=== PATIENT | female | born 2000 | race Caucasian/White ===

== ENCOUNTER → 2019-10-23 22:10 | Observation (INO) ==
[2019-10-23 20:06] LABS: Bilirubin,Urine Negative (Negative); Blood,Urine Negative (Negative); Clarity,Urine Cloudy (Clear); Color,Urine Yellow (Yellow); Glucose,Urine (UA) Normal (Normal); Ketones,Urine Negative (Negative); Leukocyte Esterase,Urine Negative (Negative); Nitrite,Urine Negative (Negative); Protein,Urine Negative (Neg-Trace); Urobilinogen,Urine Normal (Normal)
[2019-10-23 20:16] LABS: Amphetamine Screen,Urine Negative ng/mL (Cutoff=1000); Barbiturate Screen,Urine Negative ng/mL (Cutoff=200); Benzodiazepines Screen,Urine Negative ng/mL (Cutoff=200); Cannabinoid Screen,Urine Negative ng/mL (Cutoff = 50); Cocaine Screen,Urine Negative ng/mL (Cutoff= 300); Opiate Screen,Urine Negative ng/mL (Cutoff=300); Phencyclidine Screen,Urine Negative ng/mL (Cutoff=25)
[2019-10-23 20:30] LABS: Bacteria,Urine None Seen per hpf (None-Few); Hyaline Casts,Urine None Seen per lpf (None-Few); RBC,Urine 0-3 per hpf (0-3); Squamous Epithelial Cell,Urine Many per lpf (None-Few); WBC,Urine 0-3 per hpf (0-3)
[~2019-10-23 22:10] MED LIST: Acetaminophen 325 MG TABLET PO ONE; Terbutaline 1 MG/ML VIAL SQ ONE
== END | disposition home or self-care (01) ==
LOC: 1NENULAB
PROVIDERS: ADMIT Advanced Practice Midwife; ATTEND Advanced Practice Midwife

== ENCOUNTER 2019-11-06 22:31 | Observation (INO) ==
[2019-11-06 22:42] LABS: Bilirubin,Urine Small (Negative); Blood,Urine Negative (Negative); Clarity,Urine Clear (Clear); Color,Urine Dark Yellow (Yellow); Glucose,Urine (UA) Normal (Normal); Ketones,Urine 15 mg/dL (Negative); Leukocyte Esterase,Urine Negative (Negative); Nitrite,Urine Negative (Negative); Protein,Urine Negative (Neg-Trace); Specific Gravity,Urine > 1.030 (1.010-1.025); Urobilinogen,Urine Normal (Normal)
[2019-11-07 01:04] LABS: Candida DNA Not Detected (Not Detect); Gardnerella DNA Not Detected (Not Detect); Trichomonas DNA Not Detected (Not Detect)
== END 2019-11-07 00:15 | disposition home or self-care (01) ==
LOC: 1NENUNUR → 1NENULAB 22:31
PROVIDERS: ADMIT Obstetrics & Gynecology; ATTEND Obstetrics & Gynecology

== ENCOUNTER 2019-11-11 00:16 | Observation (INO) ==
[2019-11-11 00:35] LABS: Bilirubin,Urine Negative (Negative); Blood,Urine Negative (Negative); Clarity,Urine Cloudy (Clear); Color,Urine Yellow (Yellow); Glucose,Urine (UA) Normal (Normal); Ketones,Urine Negative (Negative); Leukocyte Esterase,Urine Trace (Negative); Nitrite,Urine Negative (Negative); PH,Urine 6.5 pH Units (5.0-8.0); Protein,Urine Negative (Neg-Trace); Specific Gravity,Urine 1.016 (1.010-1.025); Urobilinogen,Urine Normal (Normal)
[2019-11-11 00:36] LABS: Bacteria,Urine Few per hpf (None-Few); Hyaline Casts,Urine None Seen per lpf (None-Few); RBC,Urine 0-3 per hpf (0-3); Squamous Epithelial Cell,Urine Many per lpf (None-Few)
[2019-11-11 00:48] LABS: Amphetamine Screen,Urine Negative ng/mL (Cutoff=1000); Barbiturate Screen,Urine Negative ng/mL (Cutoff=200); Benzodiazepines Screen,Urine Negative ng/mL (Cutoff=200); Cannabinoid Screen,Urine Negative ng/mL (Cutoff = 50); Cocaine Screen,Urine Negative ng/mL (Cutoff= 300); Opiate Screen,Urine Negative ng/mL (Cutoff=300); Phencyclidine Screen,Urine Negative ng/mL (Cutoff=25)
== END 2019-11-11 01:15 | disposition home or self-care (01) ==
LOC: 1NENULAB
PROVIDERS: ADMIT Advanced Practice Midwife; ATTEND Advanced Practice Midwife

== ENCOUNTER → 2019-11-19 18:40 | Observation (INO) ==
[2019-11-19 17:49] LABS: Bilirubin,Urine Negative (Negative); Blood,Urine Negative (Negative); Clarity,Urine Cloudy (Clear); Color,Urine Dark Yellow (Yellow); Glucose,Urine (UA) Normal (Normal); Ketones,Urine Trace mg/dL (Negative); Leukocyte Esterase,Urine Moderate (Negative); Nitrite,Urine Negative (Negative); PH,Urine 6.5 pH Units (5.0-8.0); Protein,Urine Negative (Neg-Trace); Specific Gravity,Urine 1.024 (1.010-1.025); Urobilinogen,Urine Normal (Normal)
[2019-11-19 17:52] LABS: Squamous Epithelial Cell,Urine Many per lpf (None-Few); WBC,Urine 15-30 per hpf (0-3)
[2019-11-19 18:02] LABS: RBC,Urine 0-3 per hpf (0-3)
[2019-11-19 18:03] LABS: Bacteria,Urine Few per hpf (None-Few)
== END | disposition home or self-care (01) ==
LOC: 1NENULAB
PROVIDERS: ADMIT Student in an Organized Health Care Education/Training Program; ATTEND Student in an Organized Health Care Education/Training Program

== ENCOUNTER 2019-11-29 05:49 | Inpatient (IN) ==
[2019-11-29] MEDS ORDERED: CeFAZolin Syr 3,000MG/30 ML 3,000 MG/30 ML SYRINGE IVPB ONE (06:05)
[2019-11-29] MEDS ORDERED: Ringers Solution, Lactated 1,000 ML IVC ONE (06:05)
[2019-11-29] MEDS ORDERED: Famotidine 20 MG/2 ML VIAL IVP ONE (06:05)
[2019-11-29] MEDS ORDERED: Metoclopramide 10 MG/2 ML VIAL IVP ONE (06:05)
[2019-11-29 06:39] LABS: Basophils % 0.3 %; Eosinophils # 0.1 K/mcL (0.0-0.6); Eosinophils % 0.8 %; Hematocrit 37.7 % (35.3-44.9); Immature Granulocytes % 0.6 % (0-4); Lymphocytes # 3.1 K/mcL (0.6-4.6); Lymphocytes % 24.8 %; Mean Corpuscular HGB Conc 31.8 g/dL (31.6-35.5); Mean Corpuscular Volume 84.9 fL (83.0-100.0); Mean Platelet Volume 11.1 fL (9.4-12.4); Monocytes # 0.9 K/mcL (0.0-1.3); Monocytes % 6.7 %; Neutrophils # 8.5 K/mcL (1.6-8.9); Platelet Count 236 K/mcL (140-400); Red Blood Count 4.44 M/mcL (3.82-4.97); Red Cell Distribution Width 14.9 % (11.5-14.5); Segmented Neutrophils % 66.8 %; White Blood Count 12.7 K/mcL (4.3-11.1)
[2019-11-29 06:42] LABS: Amphetamine Screen,Urine Negative ng/mL (Cutoff=1000); Barbiturate Screen,Urine Negative ng/mL (Cutoff=200)
[2019-11-29 06:43] LABS: Benzodiazepines Screen,Urine Negative ng/mL (Cutoff=300); Cannabinoid Screen,Urine Negative ng/mL (Cutoff = 50); Cocaine Screen,Urine Negative ng/mL (Cutoff= 300); Opiate Screen,Urine Negative ng/mL (Cutoff=300); Phencyclidine Screen,Urine Negative ng/mL (Cutoff=25)
[2019-11-29] MEDS ORDERED: Ringers Solution, Lactated 1,000 ML ONE ×2 (07:24→08:13)
[2019-11-29] MEDS ORDERED: *HR* Oxytocin 10 UNIT/ML VIAL IM ONE (08:30)
[2019-11-29] MEDS ORDERED: *HR* Morphine Sulfate/PF 10 MG/10 ML AMPUL ONE (08:30)
[2019-11-29] MEDS ORDERED: EPHEDrine 50 MG/ML VIAL ONE (08:44)
[2019-11-29] MEDS ORDERED: Acetaminophen IV 1,000 MG/100 ML INFUS..BTL IVPB ONE (09:54)
[2019-11-29] MEDS ORDERED: *HR* HYDROmorphone PF 0.5 MG/0.5 ML SYRINGE IVP PRN (09:54)
[2019-11-29] MEDS ORDERED: Ondansetron 4 MG/2 ML VIAL IVP ONE (09:54)
[2019-11-29] MEDS ORDERED: *HR* OxyCODONE Immed Rel 5 MG TABLET PO PRN (09:54)
[2019-11-29] MEDS ORDERED: *HR* Promethazine 25 MG/ML VIAL IVP PRN (09:54)
[2019-11-29] MEDS ORDERED: Ringers Solution, Lactated 1,000 ML IVC SCH (12:36)
[2019-11-29] MEDS ORDERED: Oxytocin 20 units/ LR 1000 mL 20 UNIT/1,000 ML BAG IVC SCH (12:36)
[2019-11-29] MEDS ORDERED: Ondansetron 4 MG/2 ML VIAL IVP PRN (12:36)
[2019-11-29] MEDS ORDERED: Naloxone 0.4 MG/ML INJ IVP PRN (12:36)
[2019-11-29] MEDS ORDERED: Sennosides 8.6 MG TABLET PO PRN (12:36)
[2019-11-29] MEDS ORDERED: Lidocaine/EPI 1:100k 1% 30 ML VIAL INFILT ONE (12:36)
[2019-11-29] MEDS ORDERED: Metoclopramide 10 MG/2 ML VIAL IVP PRN (12:36)
[2019-11-29] MEDS ORDERED: Simethicone 80 MG TAB.CHEW PO PRN (12:36)
[2019-11-29] MEDS: Nicotine 14 MG PATCH.TD24 TD SCH (14:00)
[2019-11-29] MEDS: metroNIDAZOLE 500 MG TABLET PO SCH (18:13)
[2019-11-29] MEDS: cephALEXin 500 MG CAPSULE PO SCH (18:14)
[2019-11-30] MEDS: cephALEXin 500 MG CAPSULE PO SCH ×4 (00:25→21:04)
[2019-11-30] MEDS: metroNIDAZOLE 500 MG TABLET PO SCH ×4 (00:25→21:04)
[2019-11-30 07:35] LABS: Basophils % 0.2 %; Eosinophils # 0.1 K/mcL (0.0-0.6); Eosinophils % 0.5 %; Hematocrit 33.9 % (35.3-44.9); Hemoglobin 10.8 g/dL (11.5-15.4); Immature Granulocytes % 0.6 % (0-4); Lymphocytes # 3.3 K/mcL (0.6-4.6); Lymphocytes % 24.1 %; Mean Corpuscular HGB Conc 31.9 g/dL (31.6-35.5); Mean Corpuscular Hemoglobin 26.7 pg (28.0-33.3); Mean Corpuscular Volume 83.9 fL (83.0-100.0); Mean Platelet Volume 11.6 fL (9.4-12.4); Monocytes # 1.1 K/mcL (0.0-1.3); Neutrophils # 9.1 K/mcL (1.6-8.9); Platelet Count 216 K/mcL (140-400); Red Blood Count 4.04 M/mcL (3.82-4.97); Red Cell Distribution Width 14.8 % (11.5-14.5); Segmented Neutrophils % 66.6 %; White Blood Count 13.6 K/mcL (4.3-11.1)
[2019-11-30] MEDS: Prenatal Vit/FA 1 EACH TABLET PO SCH (07:46)
[2019-11-30] MEDS: Ibuprofen 600 MG TABLET PO PRN ×2 (07:46→16:45)
[2019-11-30] MEDS: Nicotine 14 MG PATCH.TD24 TD SCH (08:12)
[2019-11-30] MEDS: *HR* OxyCODONE/APAP 5/325 TABLET PO PRN (18:42)
[2019-12-01] MEDS: *HR* OxyCODONE/APAP 5/325 TABLET PO PRN ×2 (01:49→08:25)
[2019-12-01 07:42] VITALS: BP 120/69
[2019-12-01] MEDS: Ibuprofen 600 MG TABLET PO PRN (08:24)
[2019-12-01] MEDS: cephALEXin 500 MG CAPSULE PO SCH (08:25)
[2019-12-01] MEDS: metroNIDAZOLE 500 MG TABLET PO SCH (08:25)
[2019-12-01] MEDS: Prenatal Vit/FA 1 EACH TABLET PO SCH (08:25)
== END 2019-12-01 12:07 | disposition home or self-care (01) | DRG 540 ==
LOC: 1NENULAB 05:49 → 1NENUOBS 12:15
PROVIDERS: ADMIT Obstetrics & Gynecology; ATTEND Obstetrics & Gynecology

== ENCOUNTER 2021-12-08 09:13 | Inpatient (IN) ==
[2021-12-08] MEDS ORDERED: Oxytocin 20 units/ LR 1000 mL 20 UNIT/1,000 ML BAG IVC ONE ×2 (09:57→15:19)
[2021-12-08] MEDS ORDERED: Famotidine 20 MG/2 ML VIAL IVP ONE (09:57)
[2021-12-08] MEDS ORDERED: Metoclopramide 10 MG/2 ML VIAL IVP ONE (09:57)
[2021-12-08 10:56] LABS: Amphetamine Screen,Urine Negative ng/mL (Cutoff=1000); Barbiturate Screen,Urine Negative ng/mL (Cutoff=200); Benzodiazepines Screen,Urine Negative ng/mL (Cutoff=200); Cannabinoid Screen,Urine Negative ng/mL (Cutoff = 50); Cocaine Screen,Urine Negative ng/mL (Cutoff= 300); Opiate Screen,Urine Negative ng/mL (Cutoff=300); Phencyclidine Screen,Urine Negative ng/mL (Cutoff=25)
[2021-12-08 11:00] LABS: Basophils % 0.3 %; Eosinophils # 0.1 K/mcL (0.0-0.6); Eosinophils % 0.7 %; Hematocrit 36.7 % (35.3-44.9); Hemoglobin 11.6 g/dL (11.5-15.4); Immature Granulocytes % 0.5 % (0-4); Lymphocytes % 19.6 %; Mean Corpuscular HGB Conc 31.6 g/dL (31.6-35.5); Mean Corpuscular Hemoglobin 26.4 pg (28.0-33.3); Mean Corpuscular Volume 83.6 fL (83.0-100.0); Mean Platelet Volume 10.8 fL (9.4-12.4); Monocytes # 0.6 K/mcL (0.0-1.3); Monocytes % 5.3 %; Neutrophils # 7.7 K/mcL (1.6-8.9); Platelet Count 231 K/mcL (140-400); Red Blood Count 4.39 M/mcL (3.82-4.97); Segmented Neutrophils % 73.6 %; White Blood Count 10.4 K/mcL (4.3-11.1)
[2021-12-08] MEDS ORDERED: Gentamicin 490 MG in 0.9 % Sodium Chloride 100 ML IVPB ONE (11:00)
[2021-12-08] MEDS: Ringers Solution, Lactated 1,000 ML IVC ONE ×2 (11:00→12:16)
[2021-12-08 11:27] LABS: Influenza A PCR Negative (Negative); Influenza B PCR Negative (Negative); Resp. Syncytial Virus PCR Negative (Negative)
[2021-12-08 11:43] LABS: SARS-CoV-2 by PCR (In House) Negative (Negative)
[2021-12-08] MEDS ORDERED: *HR* Morphine Sulfate/PF 10 MG/10 ML AMPUL ONE (13:19)
[2021-12-08] MEDS ORDERED: *HR* FentaNYL (PF) 100 MCG/2 ML VIAL ONE (13:19)
[2021-12-08] MEDS ORDERED: EPHEDrine 50 MG/ML VIAL ONE (13:34)
[2021-12-08] MEDS ORDERED: Acetaminophen IV 1,000 MG/100 ML BAG IVPB ONE (13:40)
[2021-12-08] MEDS ORDERED: Ondansetron 4 MG/2 ML VIAL ONE (13:58)
[2021-12-08] MEDS ORDERED: Ketorolac 30 MG/ML VIAL ONE (13:59)
[2021-12-08] MEDS ORDERED: Ringers Solution, Lactated 1,000 ML ONE (15:54)
[2021-12-08] MEDS ORDERED: Ondansetron 4 MG/2 ML VIAL IVP PRN (16:58)
[2021-12-08] MEDS ORDERED: Simethicone 80 MG TAB.CHEW PO PRN (16:58)
[2021-12-08] MEDS ORDERED: Metoclopramide 10 MG/2 ML VIAL IVP PRN (16:58)
[2021-12-08] MEDS ORDERED: *HR* OxyCODONE Immed Rel 5 MG TABLET PO PRN (16:58)
[2021-12-08] MEDS ORDERED: Oxytocin 20 units/ LR 1000 mL 20 UNIT/1,000 ML BAG IVC SCH (16:58)
[2021-12-08] MEDS ORDERED: Ringers Solution, Lactated 1,000 ML IVC SCH (16:58)
[2021-12-08] MEDS: *HR* Enoxaparin 80 MG/0.8 ML SYRINGE SQ SCH (21:27)
[2021-12-08] MEDS: Acetaminophen 325 MG TABLET PO SCH (21:28)
[2021-12-08] MEDS: Ibuprofen 600 MG TABLET PO SCH (21:29)
[2021-12-09] MEDS: Ibuprofen 600 MG TABLET PO SCH ×2 (05:07→05:08)
[2021-12-09 06:00] LABS: Basophils % 0.2 %; Eosinophils % 0.1 %; Hematocrit 33.5 % (35.3-44.9); Hemoglobin 10.6 g/dL (11.5-15.4); Immature Granulocytes % 0.5 % (0-4); Lymphocytes # 3.1 K/mcL (0.6-4.6); Lymphocytes % 21.8 %; Mean Corpuscular HGB Conc 31.6 g/dL (31.6-35.5); Mean Corpuscular Hemoglobin 26.4 pg (28.0-33.3); Mean Corpuscular Volume 83.5 fL (83.0-100.0); Mean Platelet Volume 11.3 fL (9.4-12.4); Monocytes # 1.1 K/mcL (0.0-1.3); Monocytes % 7.5 %; Neutrophils # 9.9 K/mcL (1.6-8.9); Platelet Count 230 K/mcL (140-400); Red Blood Count 4.01 M/mcL (3.82-4.97); Red Cell Distribution Width 15.9 % (11.5-14.5); Segmented Neutrophils % 69.9 %; White Blood Count 14.1 K/mcL (4.3-11.1)
[2021-12-09] MEDS ORDERED: Prenatal Vit/FA 1 EACH TABLET PO SCH (09:00)
[2021-12-09] MEDS: Acetaminophen 325 MG TABLET PO SCH (09:50)
[2021-12-09] MEDS: *HR* Enoxaparin 80 MG/0.8 ML SYRINGE SQ SCH (09:50)
[2021-12-09 12:06] VITALS: BP 101/67; PULSE 68; TEMP 97.8; O2SAT 98
== END 2021-12-09 16:12 | disposition home or self-care (01) | DRG 539 ==
LOC: SAMDAY 09:13 → 1NENULAB 09:34 → 1NENUOBS 16:58
PROVIDERS: ADMIT Obstetrics & Gynecology; ATTEND Obstetrics & Gynecology